=== PATIENT | male | born 1990 | race Caucasian/White ===

== ENCOUNTER 2018-06-25 20:59 | Emergency (ER) | payer OTHER, BC ==
[~2018-06-25] VITALS: Ht 180.3 cm; Wt 79.4 kg
[2018-06-27 04:06] LABS: HCV ANTIBODY <0.1 (0.0-0.9)
[2018-06-27 05:55] LABS: HIV SCREEN 4TH GENERATION WRFX Non Reactive (Non Reactive)
== END 2018-06-25 22:05 | disposition home or self-care (01) ==
LOC: ER 20:59
PROVIDERS: Physician Assistant
DX: S61.032A Puncture wound without foreign body of left thumb without damage to nail, initial encounter (principal); W46.0XXA Contact with hypodermic needle, initial encounter
CPT/HCPCS: 84460; 86317; 86703; 86803; 87340; 87389; 99282